=== PATIENT | male | born 1995 | race Caucasian/White ===

== ENCOUNTER 2016-10-25 06:11 | Emergency (ER) | payer OTHER ==
[~2016-10-25 06:11] MED LIST: BENTYL10 MG PO; CIMZIA200 MG PO; FLOMAX(MONOGRA0.4 MG PO; PREDNICOT20 MG PO; PREDNISONE 10MG10 MG PO; PROCTOFOAM-HC 11 FOA RC; TORADOL10 MG PO; TRAMADOL50 MG PO; ULTRAM(MONOGRAP50 MG PO
[2016-10-25 06:39] LABS: ABSOLUTE BASOPHIL COUNT 0 /CUMM (0.0-0.2); ABSOLUTE EOSINOPHIL COUNT 0.1 /CUMM (0.0-0.7); ABSOLUTE GRANULOCYTE CT 8.4 /CUMM (1.4-6.5); ABSOLUTE LYMPH COUNT 4.9 /CUMM (1.2-3.4); ABSOLUTE MONOCYTE COUNT 0.9 /CUMM (0.10-0.60); BASOPHIL % 0.3 % (0.0-2.0); GRANULOCYTE % 58.4 % (42.2-75.2); HEMATOCRIT 38.6 % (42-52); MEAN CORPUSCULAR HGB 29.1 PG (27.0-31.0); MEAN CORPUSCULAR HGB CONC 32.3 G/DL (33.0-37.0); MEAN CORPUSCULAR VOLUME 90.1 FL (80.0-94.0); MEAN PLATELET VOLUME 8.3 FL (7.4-10.4); PLATELET COUNT 271 /CUMM (130-400); RBC DISTRIBUTION WIDTH 17.1 % (11.5-14.5); RED BLOOD CELL CT 4.29 /CUMM (4.70-6.10)
--- NOTE | 2016-10-25 07:05 | ED GI/GU/ABDOMINAL COMPLAINT ---
History of Present Illness General Chief Complaint: General Adult Stated Complaint: ABD/+V+N-D/FEVER Source: patient, family, old records Exam Limitations: no limitations Vital Signs & Intake/Output Vital Signs & Intake/Output Vital Signs Date Time Temp Pulse Resp B/P Pulse O2 O2 Flow FiO2 Ox Delivery Rate 10/25 0629 98 Room Air Room Air 10/25 618 96.0 55 18 139/72 100 Room Air Allergies Coded Allergies: ketorolac (From Toradol) (FEVER/CHILLS 11/08/15) Reconcile Medications Certolizumab Pegol (Cimzia) 400 MG (200 MG X 2) KIT 1 CAP PO UNKNOWN ( Reported) Hyoscyamine (Levsin) 0.125 MG TABLET 1 TAB PO Q4 PRN ABDOMINAL PAIN Ondansetron (Zofran Odt) 4 MG TAB.RAPDIS 1 TAB SL TID PRN NAUSEA TRAMADOL HCL (Tramadol) 50 MG TABLET 1 TAB PO Q6P PRN PAIN TRAMADOL HCL (Tramadol) 50 MG TAB 1 TAB PO Q6P PRN PAIN Triage Note: 21YO MALE TO RM 8 VIA WHEELCHAIR AFTER LIFTED OUT OF CAR ONTO WHEELCHAIR BY HIS FATHER W/CO SEVERE ABD PAIN W/N AND V THAT AWOKE HIM SUDDENLY "MINUTES AGO" HX CHROHNS REFUSING TO ANSWER QUESTIONS UNTIL "I AM GIVEN SOMETHING FOR THIS PAIN" Triage Nurses Notes Reviewed? yes HPI: Since yesterday evening patient has been experiencing cramping left lower quadrant pain associated with nausea vomiting and loose stools. There is no been no blood or mucus in his bowel movements. There are no fevers but positive chills. The patient is constant. There are no aggravating or mitigating factors. There is no radiation of the pain. The patient rates the pain is 10 out of 10. Patient denies any dysuria or hematuria. Past History Travel History Traveled to [place] past 21 day No Medical History Any Pertinent Medical History? see below for history Neurological: NONE EENT: NONE Cardiovascular: NONE Respiratory: NONE Gastrointestinal: Crohn's disease Hepatic: NONE Renal: NONE Musculoskeletal: NONE Psychiatric: anxiety Endocrine: NONE Blood Disorders: NONE Cancer(s): NONE GAME PROGRAMMER/Reproductive: NONE Surgical History Surgical History: non-contributory Psychosocial History What is your primary language Lithuanian Tobacco Use: Never used ETOH Use: occasional use Illicit Drug Use: denies illicit drug use Family History Hx Contributory? No Review of Systems Review of Systems Constitutional: Reports: no symptoms. EENTM: Reports: no symptoms. Respiratory: Reports: no symptoms. Cardiovascular: Reports: no symptoms. GI: Reports: see HPI, abdominal pain, diarrhea, nausea, vomiting. Genitourinary: Reports: no symptoms. Musculoskeletal: Reports: no symptoms. Skin: Reports: no symptoms. Neurological/Psychological: Reports: no symptoms. Hematologic/Endocrine: Reports: no symptoms. Immunologic/Allergic: Reports: no symptoms. All Other Systems: Reviewed and Negative Physical Exam Physical Exam General Appearance: well developed/nourished, alert, awake, moderate distress Head: atraumatic, normal appearance Eyes: Bilateral: PERRL, EOMI. Ears, Nose, Throat, Mouth: hearing grossly normal, DRY MUCOSA Neck: normal inspection, supple, full range of motion Respiratory: normal breath sounds, chest non-tender, no respiratory distress, lungs clear Cardiovascular: regular rate/rhythm, normal peripheral pulses Gastrointestinal: normal bowel sounds, soft, no organomegaly, LLQ TENDERNESS, NO REBOUND OR GUARDING Back: normal inspection, normal range of motion, NO CVA TENDERNESS Extremities: normal range of motion Neurologic/Psych: no motor/sensory deficits, awake, alert, oriented x 3, normal gait, normal mood/affect Skin: intact, normal color, warm/dry Core Measures ACS in differential dx? No Severe Sepsis Present: No Septic Shock Present: No Progress Differential Diagnosis: appendicitis, diverticulitis, gastritis, hepatitis, ischemic bowel, inflamm bowel dis, pancreatitis, SBO Plan of Care: Orders Procedure Date/time Status URINALYSIS 10/25 0632 Active LIPASE 10/25 0632 Complete COMPREHENSIVE METABOLIC PANEL 10/25 0632 Complete CBC WITHOUT DIFFERENTIAL 10/25 0632 Complete AMYLASE 10/25 0632 Complete Laboratory Tests 10/25/16 0630: Anion Gap 11, Estimated GFR > 60, BUN/Creatinine Ratio 13.8, Glucose 140 H, Calcium 9.2, Total Bilirubin 0.5, AST 57, ALT 26, Alkaline Phosphatase 77, Total Protein 7.3, Albumin 3.9, Globulin 3.4, Albumin/Globulin Ratio 1.1, Amylase 30, Lipase 73, CBC w Diff NO MAN DIFF REQ, RBC 4.29 L, MCV 90.1, MCH 29.1, RDW 17.1 H, MPV 8.3, Gran % 58.4, Lymphocytes % 34.0, Monocytes % 6.3, Eosinophils % 1.0 , Basophils % 0.3, Absolute Granulocytes 8.4 H, Absolute Lymphocytes 4.9 H, Absolute Monocytes 0.9 H, Absolute Eosinophils 0.1, Absolute Basophils 0, PUBS MCHC 32.3 L Initial ED EKG: none Comments: PT IS FEELING MUCH BETTER. DISCUSSED WITH PT AND HIS FATHER THE PROS AND CONS OF A CT SCAN. THEY WOULD PREFER TO HOLD OFF BECUASE HE HAS HAD A LOT OF CT SCANS AT [facility] AND WOULD LIKE TO AVOID RATIATION. PT STATES THAT THIS DOES NOT FEEL LIKE A CROHN'S FLAIR. PT PROMISES TO RETURN FOR IMAGING IF HIS PAIN WORSENS. Departure Departure Disposition: HOME OR SELF CARE Condition: Stable Clinical Impression Primary Impression: Gastroenteritis Referrals: GREG SANDHU,LAURY (PCP/Family) Additional Instructions: RETURN IF SYMPTOMS WORSEN OR FOR ANY CONCERNS Departure Forms: Customer Survey General Discharge Information Prescriptions: Current Visit Scripts Hyoscyamine (Levsin) 1 TAB PO Q4 PRN ABDOMINAL PAIN #20 TAB Ondansetron (Zofran Odt) 1 TAB SL TID PRN NAUSEA #10 TAB
[2016-10-25 07:20] LABS: WHITE BLOOD CELL COUNT 14.3 /CUMM (4.8-10.8)
[2016-10-25] MEDS ORDERED: LEVSIN0.125 M1 PO (08:35)
[2016-10-25] MEDS ORDERED: ZOFRAN ODT4 M1 SL (08:35)
[2016-10-25 08:41] VITALS: BP 126/84
== END 2016-10-25 08:43 ==
LOC: ERH 06:11
PROVIDERS: Emergency Medicine
DX: K52.9 Noninfective gastroenteritis and colitis, unspecified (principal)
CPT/HCPCS: 96374

== ENCOUNTER 2016-10-27 07:35 | Emergency (ER) | payer OTHER ==
[~2016-10-27] VITALS: Ht 175.3 cm; Wt 59.0 kg
[~2016-10-27 07:35] MED LIST changes: +LEVSIN0.125 M1 PO; +ZOFRAN ODT4 M1 SL
--- NOTE | 2016-10-27 08:15 | ED GI/GU/ABDOMINAL COMPLAINT ---
History of Present Illness General Chief Complaint: Abdominal Pain/Flank Pain Stated Complaint: LEFT LOWER ABD PAIN Source: patient, family, old records Exam Limitations: RELUCTANT HX Vital Signs & Intake/Output Vital Signs & Intake/Output Vital Signs Date Time Temp Pulse Resp B/P Pulse O2 O2 Flow FiO2 Ox Delivery Rate 10/27 1042 96.7 54 18 105/66 97 Room Air 10/27 0940 Room Air Room Air 10/27 0831 98.4 10/27 0740 98.4 52 18 125/86 99 Room Air Allergies Coded Allergies: ketorolac (From Toradol) (FEVER/CHILLS 11/08/15) Reconcile Medications Certolizumab Pegol (Cimzia) 400 MG (200 MG X 2) KIT 1 CAP PO UNKNOWN ( Reported) Hyoscyamine (Levsin) 0.125 MG TABLET 1 TAB PO Q4 PRN ABDOMINAL PAIN Ondansetron (Zofran Odt) 4 MG TAB.RAPDIS 1 TAB SL TID PRN NAUSEA Oxycodone HCl/Acetaminophen (Percocet 5-325 MG Tablet) 5 MG-325 MG TABLET 1-2 TAB PO Q6P PRN pain TRAMADOL HCL (Tramadol) 50 MG TABLET 1 TAB PO Q6P PRN PAIN TRAMADOL HCL (Tramadol) 50 MG TAB 1 TAB PO Q6P PRN PAIN Triage Note: C/O SHARP LEFT LOWER ABDOMINAL PAIN X 4 HOURS. DENIES VOMITING, DIARRHEA OR URINARY SXS. STATES HE WAS HERE 2 DAYS AGO FOR SAME. Triage Nurses Notes Reviewed? yes HPI: Patient presents for evaluation of a predominantly left sided abdominal pain began 2 days ago. Patient states he awoke with the pain this morning. He was seen in the emergency department 2 days ago and was discharged after an unremarkable evaluation. He states yesterday he felt well but then had a gradual onset of pain upon awakening this morning. He tried tramadol 100 mg about 2:00 this morning without improvement. It is a constant pain in the left upper quadrant "like a kidney stone". It gets worse with coughing and with tensing his muscles. He has had a kidney stone in the past. He denies any associated [place] contacts or recent travel. Past History Travel History Traveled to [place] past 21 day No Medical History Any Pertinent Medical History? see below for history Neurological: NONE EENT: NONE Cardiovascular: NONE Respiratory: NONE Gastrointestinal: Crohn's disease Hepatic: NONE Renal: NONE Musculoskeletal: NONE Psychiatric: anxiety Endocrine: NONE Blood Disorders: NONE Cancer(s): NONE MANAGER BUSINESS BANKING/Reproductive: NONE Surgical History Surgical History: non-contributory Psychosocial History What is your primary language South Korean Tobacco Use: Never used ETOH Use: denies use Family History Hx Contributory? No Review of Systems Review of Systems Constitutional: Reports: no symptoms. EENTM: Reports: no symptoms. Respiratory: Reports: no symptoms. Cardiovascular: Reports: no symptoms. GI: Reports: see HPI. Genitourinary: Reports: no symptoms. Musculoskeletal: Reports: no symptoms. Skin: Reports: no symptoms. Neurological/Psychological: Reports: no symptoms. Hematologic/Endocrine: Reports: no symptoms. Immunologic/Allergic: Reports: no symptoms. All Other Systems: Reviewed and Negative Physical Exam Physical Exam Gastrointestinal: see below Comments: Gen.: Well-nourished, well-developed, no acute respiratory distress. No apparent discomfort. Head: Normocephalic, atraumatic. Eyes: Normal inspection bilaterally Ears: Normal inspection bilaterally Nose: Normal inspection Throat/mouth : Moist mucosa Neck: Supple, full range of motion, no goiter Heart: Regular rate and rhythm, no murmurs rubs or gallops Lungs: Clear to auscultation bilaterally with normal air entry Chest: Nontender Back: Normal range of motion Abdomen: Soft, diffuse tenderness most prominently in the left upper quadrant, nondistended, normal bowel sounds Extremities: Normal range of motion grossly, equal radial pulses, no cyanosis clubbing or edema Neurologic: Cranial nerves grossly intact, speech is clear Skin: warm and dry Psychiatric: Calm, cooperative, no apparent delusions or hallucinations Core Measures ACS in differential dx? No Severe Sepsis Present: No Septic Shock Present: No Progress Differential Diagnosis: RENAL COLIC, cROHN'S DISEASE Plan of Care: Orders Procedure Date/time Status URINALYSIS 10/27 08 Active LIPASE 10/27 0815 Complete COMPREHENSIVE METABOLIC PANEL 10/27 08 Complete CBC WITHOUT DIFFERENTIAL 10/27 08 Complete Laboratory Tests 10/27/16 0830: Anion Gap 8, Estimated GFR > 60, BUN/Creatinine Ratio 5.6 L, Glucose 108 H, Calcium 9.0, Total Bilirubin 0.5, AST 51, ALT 28, Alkaline Phosphatase 77, Total Protein 7.0, Albumin 3.7, Globulin 3.3, Albumin/Globulin Ratio 1.1, Lipase 21 L , CBC w Diff NO MAN DIFF REQ, RBC 4.18 L, MCV 89.8, MCH 29.0, RDW 16.3 H, MPV 8.2, Gran % 80.7 H, Lymphocytes % 12.8 L, Monocytes % 5.8, Eosinophils % 0.2, Basophils % 0.5, Absolute Granulocytes 9.2 H, Absolute Lymphocytes 1.5, Absolute Monocytes 0.7 H, Absolute Eosinophils 0, Absolute Basophils 0.1, PUBS MCHC 32.4 L Diagnostic Imaging: Discussed w/RAD: CT Scan. Radiology Impression: PATIENT: MC WILKERSON PRESENT AGE: 21 PATIENT ACCOUNT NO: [id number] : 95 LOCATION: [facility] ORDERING PHYSICIAN: ARSENIO SONG MD SERVICE DATE: 10/27/16 EXAM TYPE: CAT - CT ABD & PELVIS W/O IV CONTRAS EXAMINATION: CT ABDOMEN AND PELVIS WITHOUT CONTRAST CLINICAL INFORMATION: Left-sided abdominal pain. History of Crohn's disease and kidney stones. COMPARISON: CT of the abdomen and pelvis done on 09/20/2014, and 06/22/2013. TECHNIQUE: Multidetector volumetric imaging was performed from the superior aspect of the liver through the pubic symphysis. Sagittal and coronal reformatted images were obtained on the technologist's workstation. DLP: 277.09 mGy-cm FINDINGS: LUNG BASES: The visualized lung bases are unremarkable. LIVER, GALLBLADDER, AND BILIARY TREE: Tiny punctate millimeter size calcification is noted along the subcapsular aspect of the posteroinferior part of the right lobe of the liver, new since prior study. There was a hypodense area identified on the prior study in this region, may represent calcification developing over the pre-existing lesion. The remainder of the liver otherwise appears unremarkable on this nonenhanced study. The gallbladder is unremarkable with no evidence of radiopaque gallstones, gallbladder wall thickening, or obvious pericholecystic inflammatory changes. PANCREAS: Unremarkable. SPLEEN: Unremarkable. ADRENAL GLANDS: Unremarkable. KIDNEYS AND URETERS: Left Kidney: Interval development of mild left-sided hydroureteronephrosis is present with an obstructing approximately 0.2 cm calculus seen at the left ureterovesicular junction. There is another 0.2 cm radiodensity seen within the left lower hemipelvis which may represent a 2nd nonobstructing left distal ureteric calculus versus phlebolith. Right Kidney: There is a 0.2 cm nonobstructing calculus present at the superior calyx of the right kidney, new since prior study. There is a 0.2 cm radiodensity seen projecting in the region of the proximal part of the right ureter, may represent retroperitoneal phlebolith versus nonobstructing ureteric calculus, new since prior studies. BLADDER: 0.2 cm calculus is seen at the left ureterovesicular junction, otherwise unremarkable. GASTROINTESTINAL TRACT: The small and large bowel are unremarkable, except for subtle apparent wall thickening involving the transverse colon which may represent changes secondary to suboptimal distention or clinically known Crohn's disease. The appendix is not visualized. ABDOMINAL WALL: No significant hernia is appreciated. LYMPH NODES: Normal. VASCULAR: Unremarkable. PELVIC VISCERA: Few phleboliths are noted. There is no free fluid, free air, or mass identified. OSSEOUS STRUCTURES: No suspicious lytic or sclerotic abnormality. IMPRESSION: 1. Interval development of a 0.2 cm calculus is noted at the left ureterovesicular junction, producing mild proximal left-sided hydroureteronephrosis, new since most recent prior study dated 09/20/2014. Another 0.2 cm radiodensity is seen within the left lower hemipelvis, may represent a nonobstructing left distal ureteric calculus versus phlebolith. 2. 0.2 cm nonobstructing calculus is noted at the superior calyx of the right kidney, new since prior study. A 2nd 0.2 cm radiodensity is noted in the region of the right proximal ureter, may represent nonobstructing ureteric calculus versus retroperitoneal phlebolith. 3. Subtle apparent wall thickening of the transverse colon, may represent changes secondary to known Crohn's disease versus suboptimal distention. 4. Otherwise unremarkable study. DICTATED BY: CAT SORTO MD DATE/TIME DICTATED:10/27/16939 SEARCH DIRECTOR:KAITLIN DATE/TIME TRANSCRIBED:10/27/16939 CONFIDENTIAL, DO NOT COPY WITHOUT APPROPRIATE AUTHORIZATION. <Electronically signed in Other Vendor System> SIGNED BY: CAT SORTO MD 10/27/16 1045 Initial ED EKG: none Comments: 10/27/2016 10:06:33 AM patient and mother sleeping. Awaiting CAT scan report. 10/27/2016 12:09:53 PM Mc appears comfortable at this point and I have updated him with test results. 10/27/2016 12:21:55 PM patient's case discussed with Dr. Walters. 10/27/2016 12:28:02 PM patient being evaluated by Dr. Walters in the emergency department. Departure Departure Disposition: HOME OR SELF CARE Condition: Stable Clinical Impression Primary Impression: Ureterolithiasis Referrals: GREG SANDHU,LAURY (PCP/Family) JONH WALTERS MD Additional Instructions: Follow-up with Dr. Walters this week for reevaluation. He tried to catch the stone and bring it to his office for testing. If you're able to take ibuprofen then please take ibuprofen 600 mg every 6 hours as needed for pain. Take the Percocet as prescribed as needed for pain. Notify your primary care doctor of this emergency department visit and treatment plan. Return if any concerns or sudden worsening. Please note that there might be incidental findings in your evaluation that are unrelated to the current emergency department visit. Please notify your primary care doctor about this emergency department visit in order to obtain and review all of the testing performed so that these incidental findings can be monitored as needed. If you had an x-ray performed, please understand that some fractures may not be seen on the initial set of x-rays. If your symptoms persist you might need a repeat set of x-rays to check for such a fracture. If you had a laceration evaluated, please understand that foreign bodies such as glass or wood may not be visible to the naked eye or on plain x-rays. If the wound becomes red, swollen, increasingly more painful or if there is any drainage from the wound, please have it reevaluated by a physician for the possibility of a retained foreign body. Thank you for choosing the [facility] for your care. It was a pleasure to serve you today. Arsenio Song M.D. [facility] Departure Forms: Customer Survey General Discharge Information Prescriptions: Current Visit Scripts Oxycodone HCl/Acetaminophen (Percocet 5-325 MG Tablet) 1-2 TAB PO Q6P PRN pain #20 TAB Critical Care Note Critical Care Note Critical Care Time: 30-74 min
[2016-10-27 08:37] LABS: ABSOLUTE BASOPHIL COUNT 0.1 /CUMM (0.0-0.2); ABSOLUTE EOSINOPHIL COUNT 0 /CUMM (0.0-0.7); ABSOLUTE GRANULOCYTE CT 9.2 /CUMM (1.4-6.5); ABSOLUTE LYMPH COUNT 1.5 /CUMM (1.2-3.4); ABSOLUTE MONOCYTE COUNT 0.7 /CUMM (0.10-0.60); BASOPHIL % 0.5 % (0.0-2.0); EOSINOPHIL % 0.2 % (0-5); GRANULOCYTE % 80.7 % (42.2-75.2); HEMATOCRIT 37.5 % (42-52); MEAN CORPUSCULAR HGB CONC 32.4 G/DL (33.0-37.0); MEAN CORPUSCULAR VOLUME 89.8 FL (80.0-94.0); MEAN PLATELET VOLUME 8.2 FL (7.4-10.4); PLATELET COUNT 232 /CUMM (130-400); RBC DISTRIBUTION WIDTH 16.3 % (11.5-14.5); RED BLOOD CELL CT 4.18 /CUMM (4.70-6.10); WHITE BLOOD CELL COUNT 11.4 /CUMM (4.8-10.8)
--- NOTE | 2016-10-27 10:45 | CT SCAN REPORT ---
EXAMINATION: CT ABDOMEN AND PELVIS WITHOUT CONTRAST CLINICAL INFORMATION: Left-sided abdominal pain. History of Crohn's disease and kidney stones. COMPARISON: CT of the abdomen and pelvis done on 09/20/2014, and 06/22/2013. TECHNIQUE: Multidetector volumetric imaging was performed from the superior aspect of the liver through the pubic symphysis. Sagittal and coronal reformatted images were obtained on the technologist's workstation. DLP: 277.09 mGy-cm FINDINGS: LUNG BASES: The visualized lung bases are unremarkable. LIVER, GALLBLADDER, AND BILIARY TREE: Tiny punctate millimeter size calcification is noted along the subcapsular aspect of the posteroinferior part of the right lobe of the liver, new since prior study. There was a hypodense area identified on the prior study in this region, may represent calcification developing over the pre-existing lesion. The remainder of the liver otherwise appears unremarkable on this nonenhanced study. The gallbladder is unremarkable with no evidence of radiopaque gallstones, gallbladder wall thickening, or obvious pericholecystic inflammatory changes. PANCREAS: Unremarkable. SPLEEN: Unremarkable. ADRENAL GLANDS: Unremarkable. KIDNEYS AND URETERS: Left Kidney: Interval development of mild left-sided hydroureteronephrosis is present with an obstructing approximately 0.2 cm calculus seen at the left ureterovesicular junction. There is another 0.2 cm radiodensity seen within the left lower hemipelvis which may represent a 2nd nonobstructing left distal ureteric calculus versus phlebolith. Right Kidney: There is a 0.2 cm nonobstructing calculus present at the superior calyx of the right kidney, new since prior study. There is a 0.2 cm radiodensity seen projecting in the region of the proximal part of the right ureter, may represent retroperitoneal phlebolith versus nonobstructing ureteric calculus, new since prior studies. BLADDER: 0.2 cm calculus is seen at the left ureterovesicular junction, otherwise unremarkable. GASTROINTESTINAL TRACT: The small and large bowel are unremarkable, except for subtle apparent wall thickening involving the transverse colon which may represent changes secondary to suboptimal distention or clinically known Crohn's disease. The appendix is not visualized. ABDOMINAL WALL: No significant hernia is appreciated. LYMPH NODES: Normal. VASCULAR: Unremarkable. PELVIC VISCERA: Few phleboliths are noted. There is no free fluid, free air, or mass identified. OSSEOUS STRUCTURES: No suspicious lytic or sclerotic abnormality. IMPRESSION: 1. Interval development of a 0.2 cm calculus is noted at the left ureterovesicular junction, producing mild proximal left-sided hydroureteronephrosis, new since most recent prior study dated 09/20/2014. Another 0.2 cm radiodensity is seen within the left lower hemipelvis, may represent a nonobstructing left distal ureteric calculus versus phlebolith. 2. 0.2 cm nonobstructing calculus is noted at the superior calyx of the right kidney, new since prior study. A 2nd 0.2 cm radiodensity is noted in the region of the right proximal ureter, may represent nonobstructing ureteric calculus versus retroperitoneal phlebolith. 3. Subtle apparent wall thickening of the transverse colon, may represent changes secondary to known Crohn's disease versus suboptimal distention. 4. Otherwise unremarkable study.
[2016-10-27] MEDS ORDERED: PERCOCET 5-3251 EACH PO ×2 (12:22→12:48)
[2016-10-27] MEDS ORDERED: TRAMADOL HCL50 M1 PO (12:35)
[2016-10-27 12:38] VITALS: BP 125/87
[2016-10-27] MEDS ORDERED: FLOMAX0.4 M1 PO (12:39)
== END 2016-10-27 12:50 ==
LOC: ERH 07:35
PROVIDERS: Emergency Medicine
DX: N20.1 Calculus of ureter (principal)
CPT/HCPCS: 74176; 96361; 96374; 96375; J0131; J2405